=== PATIENT | female | born 1940 | race Caucasian/White ===

== ENCOUNTER 2017-11-01 17:11 | Outpatient (REF) | payer OTHER, SELFPAY ==
[2017-11-01 18:58] LABS: Bilirubin Negative (Negative); Blood Trace-intact (Negative); Clarity Clear; Glucose Negative (Negative); Ketones Negative (Negative); Leukocyte Esterase Trace (Negative); Nitrite Negative (Negative); Specific Gravity <= 1.005 (1.005-1.025); Urobilinogen 0.2 EU/dL (Up TO 0.2)
[2017-11-01 19:18] LABS: RBC 0-2 (0-2)
[2017-11-01 19:19] LABS: Epithelial Cells Moderate HPF (Negative); Other Cells Few Transitional (Negative)
[2017-11-01 19:20] LABS: Bacteria Rare HPF (Negative); C & S Indicated? No/Sq. Contamination; Casts Negative LPF (Negative); Crystals Negative HPF (Negative); Mucus Negative (Negative)
== END 2017-11-01 17:31 ==
LOC: LBO 17:11
PROVIDERS: PCP Family Medicine; Visit Provider Family Medicine
DX: N39.0 Urinary tract infection, site not specified (principal)
CPT/HCPCS: 81003; 81015